=== PATIENT | male | born 1970 | race African-American/Black ===

== ENCOUNTER 2018-04-07 12:27 | Emergency (ER) | payer OTHER ==
[~2018-04-07] VITALS: Ht 167.6 cm; Wt 90.7 kg
[2018-04-07] MEDS ORDERED: CYCLOBENZAPRINE HCL 10 MG TAB PO ONE (13:45)
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
[2018-04-07] MEDS ORDERED: TYLENOL WITH C1 EACH PO (15:21)
[2018-04-07] MEDS ORDERED: SKELAXIN800 MG PO (15:21)
== END 2018-04-07 15:41 | disposition home or self-care (01) ==
LOC: ER 12:27
DX: M54.2 Cervicalgia (principal); S16.1XXA Strain of muscle, fascia and tendon at neck level, initial encounter; V43.52XA Car driver injured in collision with other type car in traffic accident, initial encounter; Y92.488 Other paved roadways as the place of occurrence of the external cause; I10 Essential (primary) hypertension; E11.9 Type 2 diabetes mellitus without complications; E78.5 Hyperlipidemia, unspecified
CPT/HCPCS: 72125; 72128; 99283

== ENCOUNTER 2018-04-12 05:36 | Emergency (ER) | payer OTHER ==
[~2018-04-12] VITALS: Ht 167.6 cm; Wt 90.7 kg
[~2018-04-12 05:36] MED LIST: SKELAXIN800 MG PO; TYLENOL WITH C1 EACH PO
[2018-04-12] MEDS ORDERED: KETOROLAC TROMETHAMINE 60 MG/2 ML VIAL IM ONE (05:45)
[2018-04-12] MEDS ORDERED: IBUPROFEN400 MG PO (06:56)
--- NOTE | 2018-04-12 08:52 | Diagnostic Imaging Report ---
EXAMINATION: CHEST SINGLE (PORTABLE) INDICATION: Chest pain COMPARISON: None FINDINGS: TUBES and LINES: None. LUNGS: Lungs are well inflated. Lungs are clear. There is no evidence of pneumonia or pulmonary edema. PLEURA: No pleural effusion or pneumothorax. HEART AND MEDIASTINUM: The cardiomediastinal silhouette is unremarkable. BONES AND SOFT TISSUES: No acute osseous lesion. Soft tissues are unremarkable. UPPER ABDOMEN: No free air under the diaphragm. IMPRESSION: No acute thoracic abnormality. Signed by: Dr. Enrique Singer M.D. on 04/12/2018 8:09 AM
== END 2018-04-12 07:06 | disposition home or self-care (01) ==
LOC: ER 05:36
DX: R07.89 Other chest pain (principal); M94.0 Chondrocostal junction syndrome [Tietze]
CPT/HCPCS: 71045; 93005; 99283; J1885